=== PATIENT | female | born 1970 | race Caucasian/White ===

== ENCOUNTER → 2017-02-13 | Outpatient (CLI) | payer OTHER | LOC: CIMAGING 09:30 | PROVIDERS: ATTEND Psychiatry & Neurology Neurology | DX: R94.02 Abnormal brain scan (principal); R51 Headache | CPT/HCPCS: 70450-PO ==

== ENCOUNTER → 2017-02-16 | Outpatient (CLI) | payer OTHER ==
[~2017-02-16] MED LIST: IOPAMIDOL (ISOVUE 370) 100 ML BTL IV ONE
== END ==
LOC: CIMAGING 13:23
PROVIDERS: ATTEND Psychiatry & Neurology Neurology
DX: I67.1 Cerebral aneurysm, nonruptured (principal)
CPT/HCPCS: 70496-PO; Q9967

== ENCOUNTER 2017-03-07 11:29 | Day surgery (SDC) | payer OTHER ==
[2017-03-07] MEDS ORDERED: ONDANSETRON 4 MG/2 ML VIAL ONE ×2 (12:47→15:47)
[2017-03-07] MEDS ORDERED: FLUMAZENIL 0.5 MG/5 ML MDV IVP ONE (12:47)
[2017-03-07] MEDS ORDERED: NALOXONE HCL 0.4 MG/ML INJ ONE (12:47)
[2017-03-07] MEDS ORDERED: fentaNYL 100 MCG/2 ML INJ ONE (12:48)
[2017-03-07] MEDS ORDERED: MIDAZOLAM 2 MG/2 ML VIAL ONE (12:48)
[2017-03-07] MEDS ORDERED: IOPAMIDOL (ISOVUE-300) 100 ML BTL IV ONE (13:43)
[2017-03-07] MEDS ORDERED: HEPARIN 10,000 UNIT/10 ML MDV ONE (13:44)
[2017-03-07] MEDS ORDERED: ONDANSETRON DISINTEGRATING 4 MG TAB ONE ×2 (15:52→15:54)
[2017-03-07] MEDS ORDERED: ACETAMINOPHEN 325 MG TAB ONE (16:22)
[2017-03-07] MEDS ORDERED: PROMETHAZINE HCL 25 MG/ML INJ ONE (16:56)
[2017-03-07] MEDS ORDERED: ACETAMINOPHEN 325 MG TAB PO ONE (17:00)
[2017-03-07] MEDS ORDERED: IBUPROFEN 200 MG TAB PO ONE (17:30)
== END 2017-03-07 18:30 | disposition home or self-care (01) ==
LOC: FIMAGING 11:29
PROVIDERS: ATTEND Neurological Surgery
PROC: B3181ZZ Fluoroscopy of Bilateral Internal Carotid Arteries using Low Osmolar Contrast (ICD-10-PCS; principal; 2017-03-07)
PROC: B31F1ZZ Fluoroscopy of Left Vertebral Artery using Low Osmolar Contrast (ICD-10-PCS; principal; 2017-03-07)
DX: I67.1 Cerebral aneurysm, nonruptured (principal)
CPT/HCPCS: 36223; 36228; 99152; C1769; J1644; J2250; J2310; J2405; J2550; J3010; Q9967

== ENCOUNTER 2017-05-08 05:51 | Observation (INO) | payer OTHER ==
[2017-05-08] MEDS ORDERED: MIDAZOLAM 2 MG/2 ML VIAL IVP ONE (06:09)
[2017-05-08] MEDS ORDERED: LR 1,000 ML IV ONE (06:21)
[2017-05-08] MEDS ORDERED: LIDOCAINE 1% 5 ML SDV ID PRN (06:21)
--- NOTE | 2017-05-08 06:38 | PDANEPAE ---
ANE History of Present Illness 46 yo F here for T/A and septoplasty ANE Past Medical History - Cardiovascular History Hx Hypertension: No Hx Arrhythmias: No Hx Chest Pain: No Hx Coronary Artery / Peripheral Vascular Disease: No Hx CHF / Valvular Disease: No Hx Palpitations: No - Pulmonary History Hx COPD: No Hx Asthma/Reactive Airway Disease: No Hx Recent Upper Respiratory Infection: No Hx Oxygen in Use at Home: No - Neurologic History Hx Cerebrovascular Accident: No Hx Seizures: No Hx Dementia: No - Endocrine History Hx Diabetes: No - Renal History Hx Renal Disorders: No - Liver History Hx Hepatic Disorders: No - Neurological & Psychiatric Hx Hx Neurological and Psychiatric Disorders: No - Cancer History Hx Cancer: No - Congenital Disorder History Hx Congenital Disorders: No - GI History Hx Gastrointestinal Disorders: No - Chronic Pain History Chronic Pain: No ANE Review of Systems Review of systems is: negative - Exercise capacity Exercise capacity: >=4 METS METS (RN): 5 METS - Systems EENMT: Reports: other (deviated septum) Respiratory: Reports: other (SPARKLE) ANE Patient History - Allergies Allergies/Adverse Reactions: Sulfa (Sulfonamide Antibiotics) Allergy (Verified 02/10/11 15:01) RASH, FEVER - Home Medications Home medications: home medication list seen and reviewed Home Medications: Dhea 25 mg 02/24/17 [Last Taken 05/04/17] Estradiol 02/24/17 [Last Taken 05/08/17] Pregnenolone Micronized 10 mg 02/24/17 [Last Taken 05/04/17] Progesterone 300 mg 02/24/17 [Last Taken 05/07/17] TESTOSTERONE 02/24/17 [Last Taken 05/08/17] THYROID DAILY 02/24/17 [Last Taken 05/07/17] VITAMIN B COMPLEX 02/24/17 [Last Taken 05/04/17] Vitamin C 02/24/17 [Last Taken 05/07/17] - NPO status NPO Since - Liquids (Date): 05/07/17 NPO Since - Solids (Date): 05/07/17 - Anes Hx Anes Hx: post operative nausea and vomiting - Smoking Hx Smoking Status: Former smoker (quit in February) - Alcohol Use Alcohol Use: Occasionally - Family Anes Hx Family Anes Hx: none Family Hx Anesthesia Complications: None ANE Labs/Vital Signs - Vital Signs Blood Pressure: 107/81 Heart Rate: 76 Respiratory Rate: 16 O2 Sat (%): 94 Height: 160.02 cm Weight: 58.513 kg ANE Physical Exam - Airway Neck exam: FROM Mallampati Score: Class 1 Mouth exam: normal dental/mouth exam - Pulmonary Pulmonary: clear to auscultation - Cardiovascular Cardiovascular: regular rate and rhythym - ASA Status ASA Status: II ANE Anesthesia Plan Anesthesia Plan: general endotracheal anesthesia
[2017-05-08] MEDS ORDERED: METHYLENE BLUE 0.5% 50 MG/10 ML AMP ONE (07:00)
[2017-05-08] MEDS ORDERED: LIDO/EPI 1% **Not for Epidural 20 ML MDV ONE (07:00)
[2017-05-08] MEDS ORDERED: EPINEPHrine 30 MG/30 ML MDV ONE (07:01)
[2017-05-08] MEDS ORDERED: fentaNYL 100 MCG/2 ML INJ ONE ×2 (07:07→10:11)
[2017-05-08] MEDS ORDERED: PROPOFOL/EMULSION 500 MG/50 ML BOTTLE IV ONE ×2 (07:08→09:32)
[2017-05-08] MEDS ORDERED: PROPOFOL 200 MG/20 ML VIAL ONE (07:08)
[2017-05-08] MEDS ORDERED: REMIFENTANIL HCL 1 MG VIAL ONE ×2 (07:10→09:31)
[2017-05-08] MEDS ORDERED: LIDOCAINE 2% 100 MG/5 ML SYR ONE (07:17)
[2017-05-08] MEDS ORDERED: ROCURONIUM 50 MG/5 ML VIAL ONE (07:17)
--- NOTE | 2017-05-08 07:24 | PDGENHP ---
History and Physical History and Physical: Pt here for tonsillectomy and septoplasty/SMR turbs. Has mild SPARKLE. We have discussed surgery extensively in clinic and consent was done. All questions were answered. PMH: SPARKLE, post operative nausea ALL: sulfa A/P: Mild SPARKLE, scheduled for tonsillectomy, septoplasty and SMR turbs. Will admit for post op obs. Consent done.
[2017-05-08] MEDS ORDERED: ceFAZolin 2 GM in D5W 100 ML IV ONE (07:25)
[2017-05-08] MEDS ORDERED: DEXAMETHASONE 10 MG/ML VIAL IVP ONE (07:26)
[2017-05-08] MEDS ORDERED: ceFAZolin 2 GM/DEXTROSE 100 ML IV ONE (07:30)
[2017-05-08] MEDS ORDERED: SCOPOLAMINE HYDROBROMIDE 1.5 MG PATCH TD SCH (07:45)
[2017-05-08] MEDS ORDERED: fentaNYL 100 MCG/2 ML INJ IVP PRN (08:51)
[2017-05-08] MEDS ORDERED: OXYCODONE/APAP 5/325 TAB PO PRN (08:51)
[2017-05-08] MEDS ORDERED: PROMETHAZINE HCL 25 MG/ML INJ IVP PRN ×2 (08:51→16:02)
[2017-05-08] MEDS ORDERED: ACETAMINOPHEN 500 MG TAB PO PRN (08:51)
[2017-05-08] MEDS ORDERED: HYDROmorphONE/DILAUDID 1 MG/ML SYR IVP PRN (08:51)
[2017-05-08] MEDS ORDERED: NALOXONE HCL 0.4 MG/ML INJ IVP PRN (08:51)
[2017-05-08] MEDS ORDERED: ONDANSETRON 4 MG/2 ML VIAL IVP PRN (08:51)
[2017-05-08] MEDS ORDERED: ACETAMINOPHEN 160 MG/5 ML UDCUP PO PRN ×2 (09:17→10:18)
[2017-05-08] MEDS ORDERED: ACETAMINOPHEN 160 MG/5 ML UDCUP PO ONE (09:30)
[2017-05-08] MEDS ORDERED: OXYMETAZOLINE 30 ML NASAL SPRAY EACHNARE PRN (10:18)
--- NOTE | 2017-05-08 10:18 | POSTOPPROG ---
Post Op Note Date of Operation: 05/08/17 Surgeon: Tia Albarran Anesthesiologist: lory Anesthesia: GET(General Endotracheal) Pre-op Diagnosis: SPARKLE, nasal obstruction, tonsillar hypertrophy Indication: above Procedure: tonsillectomy B, endoscopically assisted septoplasty and SMR turbs Findings: DNS R caudally, L more superiorly, tonsils 2+ Inf/Abcess present in the surg proc area at time of surgery?: No Depth: Superfical (Skin SQ) EBL: Minimal Complications: none apparent
[2017-05-08] MEDS ORDERED: oxyCODONE ORAL SOLUTION 10 MG/0.5 ML UDSYR PO PRN (10:20)
[2017-05-08] MEDS ORDERED: SODIUM CL NASAL 45 ML BTL EACHNARE PRN (10:21)
[2017-05-08] MEDS ORDERED: D5W 1/2 NS W/ 20 KCl/L 1,000 ML IV SCH (10:30)
[2017-05-08] MEDS: ONDANSETRON 4 MG/2 ML VIAL IVP PRN ×2 (12:55→21:35)
--- NOTE | 2017-05-08 13:23 | POSTANESTH ---
Post Anesthetic Evaluation Cardiovascular Status: Normal, Stable, Similar to Pre-Op Cond Respiratory Status: Normal, Stable, Similar to Pre-op Cond. Level of Consciousness/Mental Status: Can Participate in Eval, Alert and Oriented Pain Control: Adequate, Prn Tx Ordered Nausea/Vomiting Control: Adequate, Prn Tx Ordered Complications Possibly Related to Anesthesia: None Noted
[2017-05-08] MEDS: CEPHALEXIN 500 MG CAP PO SCH ×3 (14:27→21:41)
[2017-05-08] MEDS ORDERED: LABETALOL HCL 50 MG/10 ML SYR IVP PRN (15:15)
--- NOTE | 2017-05-08 15:35 | SOAPPROG ---
SOAP Progress Note Assessment/Plan: Assessment: Pt with HTN and tachycardia since surgery. States pain only 3 after Oxycodone given. Ordered Labetalol 10 mg now and called hospital medicine for consult and recs regarding HTN/tachycardia. Discussed her current pressures/HR. Having minimal ooze from R nare. LIkely related also to HTN. Afrin adn pressure rec. Also ordered nasal drip pad. Plan: 05/08/17 15:33 Objective: Vital Signs Temp Pulse Resp BP Pulse Ox 37.2 C 91 16 152/101 H 93 05/08/17 11:23 05/08/17 14:22 05/08/17 14:22 05/08/17 14:22 05/08/17 14:22 05/07/17 05/08/17 05/09/17 05:59 05:59 05:59 Intake Total 1400 Output Total 50 Balance 1350 ICD10 Worksheet Patient Problems: Problems Problem Status Onset SPARKLE (obstructive sleep apnea) Acute - ICD10 Problem Qualifiers (1) SPARKLE (obstructive sleep apnea)
--- NOTE | 2017-05-08 16:14 | CPEKG ---
Heart Rate: 96 RR Interval: 625 P-R Interval: 188 QRSD Interval: 80 QT Interval: 364 QTC Interval: 460 P [place]: 43 QRS [place]: 26 T Wave [place]: -9 EKG Severity - BORDERLINE ECG - EKG Impression: SINUS RHYTHM EKG Impression: BORDERLINE T ABNORMALITIES, DIFFUSE LEADS Electronically Signed By: Robert Velasco 09-May-2017 12:24:18
[2017-05-08 16:18] LABS: % IMMATURE GRANULYOCYTES 1.5 % (0.0-1.1); ABSOLUTE IMMATURE GRANULOCYTES 0.19 10^3/uL (0.00-0.10); ABSOLUTE NRBC COUNT 0.02 10^3/uL (0-0.01); ADD DIFF? NO; ADD MORPH? NO; ADD SCAN? NO; ATYPICAL LYMPHOCYTE FLAG 0 (0-99); FRAGMENT RBC FLAG 0 (0-99); HEMATOCRIT 42.4 % (38.0-47.0); HEMOGLOBIN 14.7 g/dL (12.6-16.3); LEFT SHIFT FLG 10 (0-99); LIPEMIA HEMOLYSIS FLAG 90 (0-99); MEAN CELL HEMOGLOBIN CONCENTR. 34.7 g/dL (32.4-36.7); MEAN CELL VOLUME 92.4 fL (81.5-99.8); MEAN PLATELET VOLUME 10.3 fL (8.7-11.7); NRBC-AUTO% 0.2 % (0.0-0.2); PLATELET CLUMPS FLAG 0 (0-99); PLATELET COUNT 202 10^3/uL (150-400); RED BLOOD CELL COUNT 4.59 10^6/uL (4.18-5.33); RED CELL DISTRIBUTION WIDTH 12.5 % (11.5-15.2)
[2017-05-08 16:29] LABS: ALANINE AMINOTRANSFERASE 33 IU/L (9-52); ALBUMIN 3.8 g/dL (3.5-5.0); ALKALINE PHOSPHATASE 95 IU/L (38-126); ANION GAP 8 mEq/L (8-16); ASPARTATE AMINOTRANSFERASE 25 IU/L (14-46); BILIRUBIN,TOTAL 0.5 mg/dL (0.1-1.4); CALCIUM 8.3 mg/dL (8.5-10.4); CARBON DIOXIDE 22 mEq/l (22-31); CHLORIDE 100 mEq/L (97-110); CREATININE 0.6 mg/dL (0.6-1.0); GLOMERULAR FILTRATION RATE > 60; GLUCOSE 241 mg/dL (70-100); POTASSIUM 4.3 mEq/L (3.5-5.2); SODIUM 130 mEq/L (134-144); TOTAL PROTEIN 6.5 g/dL (6.3-8.2)
[2017-05-08 16:41] LABS: TROPONIN I < 0.012 ng/mL (0-0.034)
[2017-05-08] MEDS ORDERED: hydrALAZINE 20 MG/ML VIAL IVP PRN (17:55)
[2017-05-08] MEDS ORDERED: D50W 25 GM/50 ML SYR IVP PRN (17:56)
[2017-05-08] MEDS: NS 1,000 ML IV SCH (18:10)
--- NOTE | 2017-05-08 18:58 | GCON ---
[f rep st] CONSULTATION TRAUMA MEDICINE CONSULTATION DATE OF CONSULTATION: 05/08/2017 REFERRING PHYSICIAN: Tia Albarran MD REASON FOR CONSULTATION: Medical opinion regarding postoperative hypertension and tachycardia. HISTORY: The patient is a 46-year-old female who went to elective surgery this morning with Dr. Nam hays. She has obstructive sleep apnea, and she had a tonsillectomy, a septoplasty, and an SMR Turbs earlier today. Postoperatively, she is having a massive amount of nausea, and she just vomited. H er blood pressure is running high, 152/101, with heart rates up to 110. She states her blood pressu re normally runs very low. She is not having a lot of pain. She does, however, look very uncomfort able, and having some bleeding from the nose. PAST MEDICAL HISTORY: 1. Obstructive sleep apnea. 2. Ankylosing spondylitis. 3. Muñoz's palsy. MEDICATIONS: Please see computerized record for full detailed list. ALLERGIES: Sulfa. SOCIAL HISTORY: She recently quit smoking. She drinks alcohol once a week. She lives with her hus band. REVIEW OF SYSTEMS: A complete review of system obtained. Review of systems is negative regarding c onstitutional, HEENT, GI, pulmonary, cardiovascular, , hematology, skin, musculoskeletal, endocrin e, psychiatric, except for positives and negatives as listed in HPI. FAMILY HISTORY: Reviewed and noncontributory to presenting complaint. PHYSICAL EXAMINATION: GENERAL: Well-developed, well-nourished female in no acute distress. VITAL SIGNS: Temperature is 36.6, blood pressure was previously 152/101, currently 125/89, heart rate cur rently 100, saturating 92% on room air. EYES: Normal conjunctivae. Pupils react to light. ENT: She is having quite a bit of bleeding from the nose. Hearing intact. Normal lips and teeth. Oroph arynx moist. NECK: Trachea midline. No thyromegaly. CHEST: Normal respiratory effort. LUNGS: Clear to auscultation bilaterally. CARDIOVASCULAR SYSTEM: Regular rhythm. No murmur. No lower ex tremity edema. ABDOMEN: Soft, nontender. No hepatosplenomegaly. SKIN: Warm, dry, intact, withou t rash. MUSCULOSKELETAL: No cyanosis or clubbing. Strength 5/5 upper and lower extremities. NEUR OLOGIC: Cranial nerves intact. Normal sensation to light touch. PSYCHIATRIC: Alert and oriented x3. Normal mood and affect. Normal judgment. Normal insight. Normal memory. LABORATORY DATA: White count 12.7, hematocrit 42.4, platelets 202. Sodium 130, potassium 4.3, chlo ride 100, bicarbonate 22, BUN 10, creatinine 0.6, glucose 241. LFTs are negative. Troponins negati ve. TSH is 0.74. EKG reviewed by me, on first interpretation, is normal sinus rhythm. Diffuse T-w ave flattening. This case was discussed with Dr. Albarran. She was concerned regarding the blood pressures, and want ed some assistance with blood pressure management. ASSESSMENT AND PLAN: 1. Postoperative hypertension. I suspect this is due to a postanesthesia effect. She appears quit e uncomfortable under stress with a lot of nausea. Blood pressures are now improved, but we can use IV hydralazine for extreme blood pressure elevations. I doubt she will need long-term oral medicat ions, given her history of baseline hypotension. 2. Hyperglycemia. I will change her IV fluid away from D5, and place her on normal saline. We titus l check a hemoglobin A1c in the morning. 3. Hyponatremia. Again, change IV fluid to normal saline, and recheck in the morning. 4. Obstructive sleep apnea. She has just undergone surgery with Dr. Albarran for surgical improveme nt. Internal Medicine will continue to follow while she remains hospitalized. Thank you very much for this consultation. /[id number]/MODL
[2017-05-08] MEDS ORDERED: PROGESTERONE,MICR 100 MG CAP PO SCH (21:00)
[2017-05-08] MEDS ORDERED: [UNRECOGNIZED DRUG - OTHER] TP SCH (21:00)
[2017-05-08] MEDS ORDERED: TESTOSTERONE TP SCH (21:00)
[2017-05-08] MEDS: INSULIN REGULAR HUMAN 100 UNIT/ML SC SCH (22:45)
[2017-05-09 03:31] VITALS: TEMP 99.1
[2017-05-09] MEDS: NS 1,000 ML IV SCH (03:47)
[2017-05-09 05:45] LABS: % IMMATURE GRANULYOCYTES 0.4 % (0.0-1.1); ABSOLUTE IMMATURE GRANULOCYTES 0.04 10^3/uL (0.00-0.10); ADD DIFF? NO; ADD MORPH? NO; ADD SCAN? NO; ATYPICAL LYMPHOCYTE FLAG 0 (0-99); FRAGMENT RBC FLAG 0 (0-99); HEMATOCRIT 38.6 % (38.0-47.0); HEMOGLOBIN 13.4 g/dL (12.6-16.3); LEFT SHIFT FLG 0 (0-99); LIPEMIA HEMOLYSIS FLAG 90 (0-99); MEAN CELL HEMOGLOBIN CONCENTR. 34.7 g/dL (32.4-36.7); MEAN CELL VOLUME 92.1 fL (81.5-99.8); MEAN PLATELET VOLUME 10.6 fL (8.7-11.7); PLATELET CLUMPS FLAG 0 (0-99); PLATELET COUNT 226 10^3/uL (150-400); RED BLOOD CELL COUNT 4.19 10^6/uL (4.18-5.33); RED CELL DISTRIBUTION WIDTH 12.7 % (11.5-15.2)
[2017-05-09] MEDS ORDERED: LEVOTHYROXINE 100 MCG TAB PO SCH ×2 (06:00)
[2017-05-09 06:12] LABS: ANION GAP 10 mEq/L (8-16); CALCIUM 9.2 mg/dL (8.5-10.4); CARBON DIOXIDE 23 mEq/l (22-31); CHLORIDE 108 mEq/L (97-110); CREATININE 0.7 mg/dL (0.6-1.0); GLOMERULAR FILTRATION RATE > 60; GLUCOSE 117 mg/dL (70-100); SODIUM 141 mEq/L (134-144)
[2017-05-09 08:03] VITALS: PULSE 87; RESP 16
[2017-05-09] MEDS: INSULIN REGULAR HUMAN 100 UNIT/ML SC SCH ×2 (08:42→12:15)
[2017-05-09] MEDS: CEPHALEXIN 500 MG CAP PO SCH (09:53)
[2017-05-09] MEDS ORDERED: THYROID 60 MG TAB PO SCH (10:00)
--- NOTE | 2017-05-09 11:21 | HOSPPROG ---
Hospitalist Progress Note Assessment/Plan: Patient is a 46 y/o female who had surgery w Dr Sarah/ post op developed htn and tachycardia/ today is my first encounter w the patient. Chart reviewed. *Post op htn bp stable this a.m @ 123/77 suspect it was from pain *tachycardia resolved reviewed telemetry monitoring/has had no further tachycardia *hyperglycemia A1C is pending *SPARKLE o2 levels stable plan: ok for dc from hospitalist perspective Subjective: Victor M is feeling fine x some pressure on sinus area. Objective: Vital Signs Temp Pulse Resp BP Pulse Ox 37.3 C 87 16 122/79 H 94 05/09/17 03:29 05/09/17 08:02 05/09/17 08:02 05/09/17 08:02 05/09/17 08:02 Laboratory Results 05/09/17 05:02 05/09/17 05:02 05/08/17 05/09/17 05/10/17 05:59 05:59 05:59 Intake Total 1650 Output Total 50 Balance 1600 - Physical Exam Constitutional: no apparent distress, appears nourished, No not in pain Eyes: PERRL Ears, Nose, Mouth, Throat: hearing normal Cardiovascular: regular rate and rhythym, No systolic murmur, No tachycardia Respiratory: no respiratory distress Gastrointestinal: normoactive bowel sounds Skin: warm Musculoskeletal: full muscle strength Neurologic: AAOx3 Psychiatric: interacting appropriately, not anxious ICD10 Worksheet Patient Problems: Problems Problem Status Onset SPARKLE (obstructive sleep apnea) Acute
[2017-05-09 11:39] LABS: HEMOGLOBIN A1C 5.2 % (4.0-6.0)
--- NOTE | 2017-05-09 11:50 | SOAPPROG ---
SOAP Progress Note Assessment/Plan: Assessment: Pt seen this am. Doign much better. HTN adn HT improved. Labs improved as well. Minimal oozing from nose though not sig. No bleeding from mouth. Taking some po. mild nausea though improved. Ok to d/c home with ok'd by medicine. Plan for rtc 1 week. home with pain meds, zofran, and keflex. Plan: 05/08/17 15:33 05/09/17 11:47 Subjective: Did well o/n. Pain controlled with meds. Taking some po. No O2 needs. Labs corrected this am. BP improved. Objective: AFVSS RA minimal ooze to drip pad no bleeding from mouth RA Vital Signs Temp Pulse Resp BP Pulse Ox 37.3 C 87 16 122/79 H 94 05/09/17 03:29 05/09/17 08:02 05/09/17 08:02 05/09/17 08:02 05/09/17 08:02 Laboratory Results 05/09/17 05:02 05/09/17 05:02 05/08/17 05/09/17 05/10/17 05:59 05:59 05:59 Intake Total 1650 Output Total 50 Balance 1600 ICD10 Worksheet Patient Problems: Problems Problem Status Onset SPARKLE (obstructive sleep apnea) Acute - ICD10 Problem Qualifiers (1) SPARKLE (obstructive sleep apnea)
[2017-05-09 12:02] VITALS: BP 107/76; O2SAT 92
--- NOTE | 2017-05-10 11:30 | GOP ---
[f rep st] OPERATIVE REPORT DATE OF OPERATION: 05/08/2017 SURGEON: Tia Albarran MD ANESTHESIA: General. PREOPERATIVE DIAGNOSIS: 1. Nasal obstruction. 2. Tonsillar hypertrophy. 3. Mild obstructive sleep apnea. POSTOPERATIVE DIAGNOSIS: 1. Nasal obstruction. 2. Tonsillar hypertrophy. 3. Mild obstructive sleep apnea. PROCEDURE PERFORMED: 1. Tonsillectomy bilaterally, over 12. 2. Endoscopically-assisted septoplasty. 3. Submucous resection of the inferior turbinates bilaterally. FINDINGS: Patient is found to have tonsils that were 2+ with the left side being greater than the r ight and the inferior poles being somewhat enlarged and medially displaced. The septum was deviated to the right due to a large septal spur and then deviated more superiorly and posteriorly in the in ternal valve region to the left. She had inferior turbinate hypertrophy bilaterally. ESTIMATED BLOOD LOSS: 50 cc or less. DESCRIPTION OF PROCEDURE: The patient was first seen in the preoperative area, where informed conse nt was obtained. She was then brought back to the operating room, where Anesthesia sedated and intu bated her. The bed was turned 90 degrees and she was prepped and draped in a normal fashion and a s houlder roll was placed. A universal time-out was performed, and once we had confirmed the patient, location, and procedure, we began surgery. A Elizabeth-Carlos mouth gag was initially placed in the ora l cavity and then retracted and suspended, giving good visualization of the oropharynx. 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 I did not feel an overt notch, but it did feel somewhat suspicious for possible submucous cleft palate, altho ugh she has not had problems with this in the past. At this point, a red rubber catheter was placed through the right naris and brought out through the oral cavity. The right tonsil was grasped with an Allis clamp and then electrocautery on a low intermediate setting was used to remove the tonsil as a whole. Any small bleeding vessels were cauterized using the bipolar cautery on a low setting. Once this was done and the tonsil was removed, this sent off the field for permanent pathology. We then did the exact same thing on the left side with the same findings, and cauterizing any small bl eeding vessels in the tonsillar fossa using the bipolar. At this point, it was felt secondary to he r mild SPARKLE it would be helpful to lateralize the pillar slightly, and so the anterior and posterior pillar were sutured together using a 3-0 Vicryl in an interrupted fashion on each side, thereby late ralizing the pillars a little bit and giving a little bit more space in the oropharyngeal airway. O nce this was done, there was no significant active bleeding. The Elizabeth-Carlos mouth gag was released and then removed and the shoulder roll was removed as well. At this point, the patient was then pr epped and draped in a normal fashion. An anterior endoscopy was performed, noting the above finding s of the septum. The septum was injected with 1% lidocaine with 1:100,000 epinephrine into the bila teral sides of the septal flaps, as well as caudally, as well as into the head of the inferior turbi taylor on both sides. Once this was done and had sufficient time to act, a left-sided hemitransfixion incision was made and then the caudal elevator was used to elevate a mucoperichondrial flap on the left side all the way back to past the bony cartilaginous junction. Once we were little bit further into the elevation of the flap, the zero-degree scope was brought into the incision and elevation o f the flap was done endoscopically to get better visualization to confirm that we were in the right plane all the way back. Once this was done, I then used a caudal under direct visualization to make a small division between the bony cartilaginous junction inferiorly, and then a D knife was used to bring our incision from posterior to anterior and superior to inferior. Once this was done, the ca rtilage was elevated off the mucoperichondrial flap on the right side, thereby isolating the cartila ge completely, and then the caudal as well as hand instruments were used to remove this piece of car tilage that was obstructing. At this point, she also was noted to have a large spur along the right side, and so the mucoperichondrial flaps were elevated off both sides and an osteotome was used to remove this from the nasal spine. Once this was done, I used the zero-degree scope to evaluate both sides of the nasal cavity. The right side looked significantly improved, but she still had a littl e bit of obstruction a little bit more posterior on the left side. So at this point, the double-act ion rongeur was used to remove bone after the mucoperichondrial flap was elevated off either side, a nd the bone was isolated. This was taken down until she had a patent nasal cavity bilaterally. I d id take care to leave at least a 10 mm strut superiorly and caudally for continued structure and sup port of the nose. At this point, the scope was removed, as well as other instruments, and the nasal cavity was evaluated. The inferior turbinates were then medialized slightly using a [place], and the n the 2 mm microdebrider was used to make a small stab incision within the head of the inferior turb inate, and then the submucous resection was performed along the length of the inferior turbinate, th ereby shrinking this down. The debrider was removed, and then we did the same thing on the right si de, and then once the debris was removed an hair or beauty salon assistant instrument was used to lateralize and outfract ure the inferior turbinates bilaterally. Once this was done, she was noted to have a significantly more patent nasal cavity bilaterally, and so the nasal cavity was irrigated out copiously with vinayak l saline and then suctioned clear. The septal flaps were reapproximated using a 4-0 plain gut on a Derrick needle. Then the hemitransfixion incision was closed using a 4-0 chromic in an interrupted fa shion. At this point, a Monzon splint was cut to size, was placed on either side of the septum, and then sutured into place using 3-0 Prolene. Some epi pledgets were placed just lateral, opposing the inferior turbinate on both sides of the nasal cavity, and these were kept in place until the patien t was extubated and then these were removed in the PACU. So at this point, the patient was turned b ack over to Anesthesia, where she was awakened and extubated, and taken to PACU in stable condition. There were no complications. She tolerated the procedure well and all pledget and instrument coun ts were correct at the end of the procedure. COMPLICATIONS: None. /[id number]/MODL
[2017-05-11] MEDS ORDERED: PATCH REMOVAL 1 EA PATCH TD SCH (07:45)
== END 2017-05-09 12:57 | disposition home or self-care (01) ==
LOC: FSGY 05:51 → F3E 10:18
PROVIDERS: ADMIT Otolaryngology; ATTEND Otolaryngology
DX: J34.89 Other specified disorders of nose and nasal sinuses (principal); J35.1 Hypertrophy of tonsils; G47.33 Obstructive sleep apnea (adult) (pediatric); Z87.891 Personal history of nicotine dependence; M45.9 Ankylosing spondylitis of unspecified sites in spine; G51.0 Bell's palsy; R00.0 Tachycardia, unspecified; Z88.2 Allergy status to sulfonamides; I10 Essential (primary) hypertension; Z90.89 Acquired absence of other organs
CPT/HCPCS: 30140; 30520; 42826; 93005; G0378; J0690; J2001; J2250; J2405; J2550; J2704; J3010; Q9968

== ENCOUNTER → 2017-08-02 | Outpatient (CLI) | payer OTHER | LOC: FIMAGING 12:14 | PROVIDERS: ATTEND Nurse Practitioner Family | DX: Z12.31 Encounter for screening mammogram for malignant neoplasm of breast (principal) | CPT/HCPCS: G0202 ==